=== PATIENT | male | born 1950 | race Caucasian/White ===

== ENCOUNTER 2017-04-20 09:12 | Emergency (ER) | payer OTHER ==
[2017-04-20] MEDS: IV NORMAL SALINE 1000ML BAG 1,000 ML IV (09:52)
[2017-04-20 09:58] LABS: ADD MAN DIFF? NO
[2017-04-20 10:01] LABS: BASO % 1 % (0-3); EOS % 0 % (0-3); HEMATOCRIT 46.8 % (39.0-53.0); HEMOGLOBIN 15.9 g/dL (13.0-17.5); LYMPH # 0.7 x10^3/uL (1.0-4.8); LYMPH % 11 % (24-48); MEAN CORPUSCULAR HEMOGLOBIN 32 pg (25-35); MEAN CORPUSCULAR HGB CONC 34 g/dL (31-37); MEAN CORPUSCULAR VOLUME 95 fL (79-100); MONO # 0.8 x10^3/uL (0.0-1.1); MONO % 12 % (0-9); NEUT # 4.9 x10^3uL (1.8-7.7); NEUT % 77 % (31-73); PLATELET COUNT 196 x10^3/uL (140-400); RED BLOOD COUNT 4.94 x10^6/uL (4.30-5.70); RED CELL DISTRIBUTION WIDTH 13.4 % (11.5-14.5); WHITE BLOOD COUNT 6.3 x10^3/uL (4.0-11.0)
[2017-04-20 10:14] LABS: ANION GAP 16 (6-14); BLOOD UREA NITROGEN 8 mg/dL (8-26); BUN/CREATININE RATIO 11 (6-20); CALCIUM 9.7 mg/dL (8.5-10.1); CARBON DIOXIDE 22 mmol/L (21-32); CHLORIDE 99 mmol/L (98-107); CREATININE 0.7 mg/dL (0.7-1.3); GFR 112.8; GLUCOSE 111 mg/dL (70-99); POTASSIUM 4.4 mmol/L (3.5-5.1); SODIUM 137 mmol/L (136-145)
[2017-04-20 10:19] LABS: ALBUMIN 4.2 g/dL (3.4-5.0); ALBUMIN/GLOBULIN RATIO 1.1 (1.0-1.7); ALK PHOS 69 U/L (46-116); ALT (SGPT) 33 U/L (16-63); AST (SGOT) 33 U/L (15-37); MAGNESIUM 2.2 mg/dL (1.8-2.4); TOTAL BILIRUBIN 0.7 mg/dL (0.2-1.0)
[2017-04-20 10:20] LABS: D-DIMER 0.33 ug/mlFEU (0.00-0.50); TROPONINI < 0.017 ng/mL (0.000-0.055)
[2017-04-20 10:59] LABS: INFLUENZA A PATIENT NEGATIVE (NEGATIVE); INFLUENZA B PATIENT NEGATIVE (NEGATIVE); OBC FLU VALID
[2017-04-20] MEDS: predniSONE 20 MG TABLET PO (11:25)
== END 2017-04-20 11:30 | disposition home or self-care (01) ==
LOC: ER 09:12
DX: J44.1 Chronic obstructive pulmonary disease with (acute) exacerbation (principal); F12.10 Cannabis abuse, uncomplicated; Z87.891 Personal history of nicotine dependence
CPT/HCPCS: 36415; 71045; 80053; 83735; 84484; 85025; 85379; 87804; 87804-59; 93005; 96360; 99285-25; J7030; J7512

== ENCOUNTER 2017-04-26 01:05 | Inpatient (IN) | payer OTHER ==
[2017-04-26 01:51] LABS: ADD MAN DIFF? NO
[2017-04-26 01:53] LABS: BASO # 0.1 x10^3/uL (0.0-0.2); BASO % 1 % (0-3); EOS % 0 % (0-3); HEMATOCRIT 45.8 % (39.0-53.0); HEMOGLOBIN 16.1 g/dL (13.0-17.5); LYMPH # 0.8 x10^3/uL (1.0-4.8); LYMPH % 15 % (24-48); MEAN CORPUSCULAR HEMOGLOBIN 33 pg (25-35); MEAN CORPUSCULAR HGB CONC 35 g/dL (31-37); MEAN CORPUSCULAR VOLUME 93 fL (79-100); MONO # 0.4 x10^3/uL (0.0-1.1); MONO % 8 % (0-9); NEUT % 76 % (31-73); PLATELET COUNT 160 x10^3/uL (140-400); RED BLOOD COUNT 4.95 x10^6/uL (4.30-5.70); RED CELL DISTRIBUTION WIDTH 13.1 % (11.5-14.5); WHITE BLOOD COUNT 5.3 x10^3/uL (4.0-11.0)
[2017-04-26] MEDS: IPRATRPIUM/ALBUTEROL 0.5/2.5MG 3 ML NEBU. NEB ×6 (01:56→20:18)
[2017-04-26] MEDS: IV NORMAL SALINE 1000ML BAG 1,000 ML IV (02:00)
[2017-04-26] MEDS: methylPREDNISolone SOD SUCC PF 125 MG/2 ML VIAL. IV (02:00)
[2017-04-26 02:13] LABS: ANION GAP 12 (6-14); BLOOD UREA NITROGEN 12 mg/dL (8-26); CALCIUM 9.6 mg/dL (8.5-10.1); CARBON DIOXIDE 27 mmol/L (21-32); CHLORIDE 96 mmol/L (98-107); CREATININE 0.7 mg/dL (0.7-1.3); GFR 112.8; GLUCOSE 131 mg/dL (70-99); POTASSIUM 3.6 mmol/L (3.5-5.1); SODIUM 135 mmol/L (136-145)
[2017-04-26 02:29] LABS: TROPONINI < 0.017 ng/mL (0.000-0.055)
[2017-04-26] MEDS: ONDANSETRON PF 4 MG/2 ML VIAL. IV (05:20)
[2017-04-26 06:42] LABS: TROPONINI < 0.017 ng/mL (0.000-0.055)
[2017-04-26] MEDS: AZITHROMYCIN 250 MG TABLET. PO (07:52)
[2017-04-26 10:27] LABS: TROPONINI < 0.017 ng/mL (0.000-0.055)
[2017-04-26] MEDS: PANTOPRAZOLE 40 MG TABLET.DR. PO (11:07)
[2017-04-26] MEDS: ENOXAPARIN 40 MG/0.4 ML SYRINGE. SQ (11:07)
[2017-04-26 11:45] LABS: INFLUENZA A PATIENT NEGATIVE (NEGATIVE); INFLUENZA B PATIENT NEGATIVE (NEGATIVE); OBC FLU VALID
[2017-04-26] MEDS: methylPREDNISolone SOD SUCC PF 40 MG/ML VIAL. IV ×2 (14:02→22:14)
[2017-04-26] MEDS: ZOLPIDEM 5 MG TABLET. PO (22:47)
[2017-04-27] MEDS: methylPREDNISolone SOD SUCC PF 40 MG/ML VIAL. IV (06:12)
[2017-04-27] MEDS: IPRATRPIUM/ALBUTEROL 0.5/2.5MG 3 ML NEBU. NEB ×4 (07:52→19:17)
[2017-04-27] MEDS: PANTOPRAZOLE 40 MG TABLET.DR. PO (08:54)
[2017-04-27] MEDS: predniSONE 10 MG TABLET PO (10:04)
[2017-04-27] MEDS: ENOXAPARIN 40 MG/0.4 ML SYRINGE. SQ (11:14)
[2017-04-27] MEDS: BUDESONIDE 0.5 MG/2 ML NEBU. NEB ×2 (11:37→19:17)
[2017-04-27] MEDS: ZOLPIDEM 5 MG TABLET. PO (22:47)
[2017-04-28] MEDS: PANTOPRAZOLE 40 MG TABLET.DR. PO (05:57)
[2017-04-28] MEDS: BUDESONIDE 0.5 MG/2 ML NEBU. NEB ×2 (08:26→20:45)
[2017-04-28] MEDS: IPRATRPIUM/ALBUTEROL 0.5/2.5MG 3 ML NEBU. NEB ×4 (08:26→20:45)
[2017-04-28] MEDS: PROMETH/CODEINE 6.25/10MG 5 ML SYRUP. PO (09:13)
[2017-04-28] MEDS: BENZONATATE 100 MG CAPSULE. PO (09:13)
[2017-04-28] MEDS: predniSONE 10 MG TABLET PO (09:14)
[2017-04-28] MEDS: ENOXAPARIN 40 MG/0.4 ML SYRINGE. SQ (11:23)
[2017-04-28 12:45] LABS: ANION GAP 12 (6-14); BLOOD UREA NITROGEN 13 mg/dL (8-26); CALCIUM 9.4 mg/dL (8.5-10.1); CARBON DIOXIDE 26 mmol/L (21-32); CHLORIDE 99 mmol/L (98-107); CREATININE 0.7 mg/dL (0.7-1.3); GFR 112.8; GLUCOSE 123 mg/dL (70-99); MAGNESIUM 2.3 mg/dL (1.8-2.4); POTASSIUM 3.2 mmol/L (3.5-5.1); SODIUM 137 mmol/L (136-145)
[2017-04-28 13:00] LABS: THYROID STIM HORMONE (TSH) 0.686 uIU/mL (0.358-3.74)
[2017-04-28] MEDS: POTASSIUM CHLORIDE 20 MEQ TABLET.ER. PO (14:01)
[2017-04-28] MEDS: ZOLPIDEM 5 MG TABLET. PO (22:53)
[2017-04-29 07:08] LABS: POTASSIUM 3.4 mmol/L (3.5-5.1)
[2017-04-29] MEDS: IPRATRPIUM/ALBUTEROL 0.5/2.5MG 3 ML NEBU. NEB ×2 (08:04→11:25)
[2017-04-29] MEDS: BUDESONIDE 0.5 MG/2 ML NEBU. NEB (08:04)
[2017-04-29] MEDS: PANTOPRAZOLE 40 MG TABLET.DR. PO (08:30)
[2017-04-29] MEDS: FLUCONAZOLE 100 MG TABLET. PO (08:30)
[2017-04-29] MEDS: predniSONE 10 MG TABLET PO (08:31)
== END 2017-04-29 15:04 | disposition home or self-care (01) | DRG 189 ==
LOC: ER 01:05 → 5 NORTH 03:18
DX: J96.21 Acute and chronic respiratory failure with hypoxia (principal); D75.1 Secondary polycythemia; I47.1 Supraventricular tachycardia; J44.1 Chronic obstructive pulmonary disease with (acute) exacerbation; F10.20 Alcohol dependence, uncomplicated; J06.9 Acute upper respiratory infection, unspecified; J98.01 Acute bronchospasm; K21.9 Gastro-esophageal reflux disease without esophagitis; E87.6 Hypokalemia; F12.90 Cannabis use, unspecified, uncomplicated; Z87.891 Personal history of nicotine dependence
CPT/HCPCS: 36415; 71045; 80048; 83735; 84132; 84443; 84484; 85025; 87804; 87804-59; 93005; 93306; 94618; 94640; 94760; 96361; 96374; 99285; 99285-25; J1650; J2405; J2920; J2930; J7030; J7512; J7620; J7626; Q0144

== ENCOUNTER 2017-05-06 16:48 | Inpatient (IN) | payer OTHER ==
[2017-05-06 17:27] LABS: ADD MAN DIFF? NO
[2017-05-06 17:32] LABS: BASO # 0.1 x10^3/uL (0.0-0.2); BASO % 1 % (0-3); EOS % 0 % (0-3); HEMATOCRIT 50.5 % (39.0-53.0); HEMOGLOBIN 17.1 g/dL (13.0-17.5); LYMPH # 1.5 x10^3/uL (1.0-4.8); LYMPH % 11 % (24-48); MEAN CORPUSCULAR HEMOGLOBIN 32 pg (25-35); MEAN CORPUSCULAR HGB CONC 34 g/dL (31-37); MEAN CORPUSCULAR VOLUME 93 fL (79-100); MONO # 0.8 x10^3/uL (0.0-1.1); MONO % 6 % (0-9); NEUT # 11.4 x10^3uL (1.8-7.7); NEUT % 82 % (31-73); PLATELET COUNT 416 x10^3/uL (140-400); RED BLOOD COUNT 5.42 x10^6/uL (4.30-5.70); RED CELL DISTRIBUTION WIDTH 13.5 % (11.5-14.5); WHITE BLOOD COUNT 13.9 x10^3/uL (4.0-11.0)
[2017-05-06 17:46] LABS: ANION GAP 12 (6-14); BLOOD UREA NITROGEN 14 mg/dL (8-26); CALCIUM 10.2 mg/dL (8.5-10.1); CARBON DIOXIDE 26 mmol/L (21-32); CHLORIDE 99 mmol/L (98-107); GFR 74.8; GLUCOSE 128 mg/dL (70-99); POTASSIUM 3.6 mmol/L (3.5-5.1); SODIUM 137 mmol/L (136-145)
[2017-05-06 17:52] LABS: ALBUMIN 3.9 g/dL (3.4-5.0); ALK PHOS 64 U/L (46-116); ALT (SGPT) 77 U/L (16-63); AST (SGOT) 30 U/L (15-37); DIRECT BILIRUBIN 0.2 mg/dL (0.0-0.2); LIPASE 214 U/L (73-393); TOTAL BILIRUBIN 1.3 mg/dL (0.2-1.0); TOTAL PROTEIN 8.2 g/dL (6.4-8.2)
[2017-05-06 17:54] LABS: LACTIC ACID 1.5 mmol/L (0.4-2.0)
[2017-05-06 17:55] LABS: TROPONINI < 0.017 ng/mL (0.000-0.055)
[2017-05-06 17:58] LABS: NT-PRO BNP 156 pg/mL (0-124)
[2017-05-06] MEDS: IV NORMAL SALINE 1000ML BAG 1,000 ML IV ×2 (18:01→19:55)
[2017-05-06] MEDS: ONDANSETRON PF 4 MG/2 ML VIAL. IV (18:01)
[2017-05-06] MEDS: fentaNYL PF VIAL 100 MCG/2 ML VIAL IV (18:02)
[2017-05-06] MEDS: IOHEXOL 300 MG/ML 100ML VIAL. IV (18:17)
[2017-05-06] MEDS ORDERED: ONDANSETRON PF 4 MG/2 ML VIAL. IV (19:00)
[2017-05-06] MEDS: LIDOCAINE 2% JELLY 6ML IN APPLICATOR. MM (19:00)
[2017-05-06 19:22] LABS: BILIRUBIN,URINE NEGATIVE (NEG); CLARITY,URINE CLEAR; COLOR,URINE YELLOW; GLUCOSE,URINE NEGATIVE (NEG); NITRITE,URINE NEGATIVE (NEG); PROTEIN,URINE 30 mg/dL (NEG-TRACE)
[2017-05-06] MEDS: MIDAZOLAM HCL/PF 2 MG/2 ML VIAL. IV (19:34)
[2017-05-06 19:38] LABS: AMORPHOUS SEDIMENT,UR PRESENT /HPF; BACTERIA,URINE 0 /HPF (0-FEW); RBC,URINE OCC /HPF (0-2)
[2017-05-06] MEDS: MORPHINE SULFATE 4 MG/ML DISP.SYRIN. IV (21:41)
[2017-05-07] MEDS: IV NORMAL SALINE 1000ML BAG 1,000 ML IV ×2 (05:44→14:57)
[2017-05-07] MEDS: MORPHINE SULFATE 4 MG/ML DISP.SYRIN. IV (05:47)
[2017-05-07] MEDS: ACLIDINIUM BROMIDE IH ×2 (08:20→21:02)
[2017-05-07] MEDS: NON FORMULARY ITEM (Budesonide/Formoterol Fumarate (Symbicort 80-4.5 Mcg Inhaler) 2 PUFF) IH ×2 (08:20→21:02)
[2017-05-07] MEDS: NON FORMULARY ITEM (Ipratropium/Albuterol Sulfate (Combivent Respimat Inhal) 2 INH) IH ×4 (08:20→21:01)
[2017-05-07 08:31] LABS: ADD MAN DIFF? NO
[2017-05-07 08:43] LABS: BASO % 0 % (0-3); EOS % 0 % (0-3); HEMATOCRIT 43.4 % (39.0-53.0); HEMOGLOBIN 14.6 g/dL (13.0-17.5); LYMPH # 1.3 x10^3/uL (1.0-4.8); LYMPH % 11 % (24-48); MEAN CORPUSCULAR HEMOGLOBIN 32 pg (25-35); MEAN CORPUSCULAR HGB CONC 34 g/dL (31-37); MEAN CORPUSCULAR VOLUME 96 fL (79-100); MONO # 0.7 x10^3/uL (0.0-1.1); MONO % 7 % (0-9); NEUT # 9.1 x10^3uL (1.8-7.7); NEUT % 82 % (31-73); PLATELET COUNT 325 x10^3/uL (140-400); RED BLOOD COUNT 4.55 x10^6/uL (4.30-5.70); RED CELL DISTRIBUTION WIDTH 13.8 % (11.5-14.5); WHITE BLOOD COUNT 11.2 x10^3/uL (4.0-11.0)
[2017-05-07 09:05] LABS: ANION GAP 7 (6-14); BLOOD UREA NITROGEN 14 mg/dL (8-26); CALCIUM 8.9 mg/dL (8.5-10.1); CARBON DIOXIDE 28 mmol/L (21-32); CHLORIDE 106 mmol/L (98-107); CREATININE 0.9 mg/dL (0.7-1.3); GFR 84.4; GLUCOSE 111 mg/dL (70-99); SODIUM 141 mmol/L (136-145)
[2017-05-07 09:17] LABS: POTASSIUM 4.8 mmol/L (3.5-5.1)
[2017-05-07] MEDS: ENOXAPARIN 40 MG/0.4 ML SYRINGE. SQ (11:52)
[2017-05-07] MEDS: IV DEXTROSE 5%-LACT RINGERS 1,000 ML IV ×2 (11:52→21:08)
[2017-05-07] MEDS: fentaNYL PF VIAL 100 MCG/2 ML VIAL IV ×2 (15:40→21:04)
[2017-05-08] MEDS: IV DEXTROSE 5%-LACT RINGERS 1,000 ML IV ×2 (06:00→08:31)
[2017-05-08] MEDS: NON FORMULARY ITEM (Ipratropium/Albuterol Sulfate (Combivent Respimat Inhal) 2 INH) IH ×4 (08:31→21:06)
[2017-05-08] MEDS: NON FORMULARY ITEM (Budesonide/Formoterol Fumarate (Symbicort 80-4.5 Mcg Inhaler) 2 PUFF) IH ×2 (08:31→21:06)
[2017-05-08] MEDS: ACLIDINIUM BROMIDE IH ×2 (08:32→21:06)
[2017-05-08] MEDS: fentaNYL PF VIAL 100 MCG/2 ML VIAL IV ×4 (08:36→21:05)
[2017-05-08] MEDS: ENOXAPARIN 40 MG/0.4 ML SYRINGE. SQ (08:37)
[2017-05-08] MEDS: AMINO AC 3%/ELECTROLYTE/GLYCER 1,000 ML IV ×2 (10:54→17:37)
[2017-05-08] MEDS: ONDANSETRON PF 4 MG/2 ML VIAL. IV ×2 (11:08→18:40)
[2017-05-09] MEDS: fentaNYL PF VIAL 100 MCG/2 ML VIAL IV ×8 (02:36→22:12)
[2017-05-09] MEDS: NON FORMULARY ITEM (Ipratropium/Albuterol Sulfate (Combivent Respimat Inhal) 2 INH) IH ×4 (08:10→20:02)
[2017-05-09] MEDS: ACLIDINIUM BROMIDE IH ×2 (08:10→20:01)
[2017-05-09] MEDS: NON FORMULARY ITEM (Budesonide/Formoterol Fumarate (Symbicort 80-4.5 Mcg Inhaler) 2 PUFF) IH ×2 (08:11→20:02)
[2017-05-09] MEDS: AMINO AC 3%/ELECTROLYTE/GLYCER 1,000 ML IV ×2 (08:13→14:46)
[2017-05-09] MEDS: ENOXAPARIN 40 MG/0.4 ML SYRINGE. SQ (14:47)
[2017-05-10] MEDS: AMINO AC 3%/ELECTROLYTE/GLYCER 1,000 ML IV ×3 (01:00→21:00)
[2017-05-10] MEDS: fentaNYL PF VIAL 100 MCG/2 ML VIAL IV ×4 (01:10→10:30)
[2017-05-10] MEDS: ACLIDINIUM BROMIDE IH ×2 (08:25→21:06)
[2017-05-10] MEDS: NON FORMULARY ITEM (Budesonide/Formoterol Fumarate (Symbicort 80-4.5 Mcg Inhaler) 2 PUFF) IH ×2 (08:25→21:06)
[2017-05-10] MEDS: NON FORMULARY ITEM (Ipratropium/Albuterol Sulfate (Combivent Respimat Inhal) 2 INH) IH ×4 (08:25→21:06)
[2017-05-10] MEDS: ENOXAPARIN 40 MG/0.4 ML SYRINGE. SQ (08:26)
[2017-05-10] MEDS ORDERED: IOHEXOL 300 MG/ML 100ML VIAL. (08:56)
[2017-05-10] MEDS: IOHEXOL 300 MG/ML 50 ML VIAL. PO (09:00)
[2017-05-10] MEDS ORDERED: CONTRAST GIVEN MC (09:00)
[2017-05-10] MEDS: ACETAMINOPHEN 650 MG/20.3 ML SOLUTION. PEG (15:20)
[2017-05-11] MEDS: AMINO AC 3%/ELECTROLYTE/GLYCER 1,000 ML IV ×2 (06:44→17:45)
[2017-05-11] MEDS: ACLIDINIUM BROMIDE IH ×2 (09:04→21:56)
[2017-05-11] MEDS: NON FORMULARY ITEM (Ipratropium/Albuterol Sulfate (Combivent Respimat Inhal) 2 INH) IH ×4 (09:05→21:56)
[2017-05-11] MEDS: NON FORMULARY ITEM (Budesonide/Formoterol Fumarate (Symbicort 80-4.5 Mcg Inhaler) 2 PUFF) IH ×2 (09:06→21:56)
[2017-05-11] MEDS: ENOXAPARIN 40 MG/0.4 ML SYRINGE. SQ (09:07)
[2017-05-11] MEDS: PHENOL ORAL SPRAY 177ML BOTTLE. PO ×2 (11:17→14:20)
[2017-05-11] MEDS: BENZOCAINE/MENTHOL LOZENGE. PO ×3 (11:17→17:45)
[2017-05-12] MEDS: AMINO AC 3%/ELECTROLYTE/GLYCER 1,000 ML IV (03:00)
[2017-05-12] MEDS: BENZOCAINE/MENTHOL LOZENGE. PO (04:48)
[2017-05-12] MEDS: ACLIDINIUM BROMIDE IH (08:17)
[2017-05-12] MEDS: NON FORMULARY ITEM (Budesonide/Formoterol Fumarate (Symbicort 80-4.5 Mcg Inhaler) 2 PUFF) IH (08:17)
[2017-05-12] MEDS: NON FORMULARY ITEM (Ipratropium/Albuterol Sulfate (Combivent Respimat Inhal) 2 INH) IH (08:17)
[2017-05-12] MEDS: ENOXAPARIN 40 MG/0.4 ML SYRINGE. SQ (08:19)
== END 2017-05-12 14:22 | disposition home or self-care (01) | DRG 389 ==
LOC: ER 16:48 → 4 NORTH 19:14
PROC: 0D9670Z Drainage of Stomach with Drainage Device, Via Natural or Artificial Opening (ICD-10-PCS; principal; 2017-05-06)
DX: K56.51 Intestinal adhesions [bands], with partial obstruction (principal); E44.1 Mild protein-calorie malnutrition; J44.9 Chronic obstructive pulmonary disease, unspecified; D72.829 Elevated white blood cell count, unspecified; F10.10 Alcohol abuse, uncomplicated; K21.9 Gastro-esophageal reflux disease without esophagitis; F12.90 Cannabis use, unspecified, uncomplicated; Z68.21 Body mass index [BMI] 21.0-21.9, adult; Z87.891 Personal history of nicotine dependence
CPT/HCPCS: 36415; 74022; 74177; 74250; 80048; 80076; 81001; 83605; 83690; 83880; 84484; 85025; 93005; 96361; 96374; 96375; 99285; 99285-25; J1650; J2060; J2250; J2270; J2405; J3010; J7030; Q9967

== ENCOUNTER → 2017-11-13 | Outpatient (CLI) | payer OTHER ==
[2017-05-12 11:00] VITALS: BP 114/61
[~2017-11-13] MED LIST: ACLI400A2 IH; BUDE10.22 IH; IPRA4AER IH; PRED20TA PO
--- NOTE | 2017-11-13 13:01 | RAD ---
CT of the chest without contrast 11/13/2017 INDICATION: Low dose lung cancer screening exam. INDICATION: 67-year-old male with extensive smoking history. History of COPD, hypertension, and renal disease. COMPARISON STUDY: None available. TECHNIQUE: Multidetector CT imaging of the chest was performed without the administration of IV contrast. FINDINGS: Heart size is normal. No pericardial effusion is identified. Coronary calcification noted. No pathologically enlarged mediastinal or hilar nodes are appreciated. Moderate diffuse emphysematous changes are seen. However, prominent bullous apical changes are seen bilaterally. In the right upper lung there is an area of linear consolidation and bronchiectasis consistent with scarring. In the right lung apex there is bullous change and linear areas of scarring. There is also however a spiculated soft tissue density nodule measuring up to 1.7 cm in axial diameter (axial image 62). There is a 2 mm nodule in the right upper lobe anterior medially immediately posterior to the superior vena cava (axial image 94) there is a 2 mm nodule in the right lower lobe (axial image 287). There is a 8 mm hypodensity in the left lobe of liver with attenuation characteristics consistent with a small hepatic cyst. Diffuse degenerative changes of the thoracic spine are seen. There is a smoothly marginated lytic lesion in the posterior vertebral body at T7. IMPRESSION: 1. LUNG RADS CATEGORY 4B : 17 mm spiculated nodule in the apical right upper lobe, with adjacent scarring and bullous change.Recommend PET/CT and possibly subsequent biopsy for further evaluation based on clinical findings. 2. 2 mm nodule, right upper lobe. 2 mm nodule right lower lobe. CT surveillance recommended. 3. Emphysematous changes as described 4. Smoothly marginated 8 mm lytic foci in the posterior vertebral body T7. A benign etiology is favored however given other findings attention metastatic disease cannot be completely excluded. Attention on PET/CT, and/or subsequent follow-up imaging studies is recommended CT DOSING PQRS STATEMENT: One or more of the following individualized dose reduction techniques were utilized for this examination: 1. Automated exposure control 2. Adjustment of the mA and/or kV according to patient size 3. Use of iterative reconstruction technique Electronically signed by: Xavier Tidwell MD (11/13/2017 12:57 PM) [id number]
== END | disposition home or self-care (01) ==
LOC: CT 11:48
PROVIDERS: ATTEND Family Medicine
DX: Z12.2 Encounter for screening for malignant neoplasm of respiratory organs (principal); J43.9 Emphysema, unspecified; I10 Essential (primary) hypertension; J98.4 Other disorders of lung; R91.8 Other nonspecific abnormal finding of lung field; F12.10 Cannabis abuse, uncomplicated; Z87.891 Personal history of nicotine dependence; Z72.89 Other problems related to lifestyle
CPT/HCPCS: G0297

== ENCOUNTER → 2017-11-26 | Outpatient (CLI) | payer OTHER ==
[2017-05-12 11:00] VITALS: BP 114/61
--- NOTE | 2017-11-26 12:00 | RAD ---
FDG tumor localization scan, PET/CT, 11/26/2017: History: Lung mass Following IV injection of 15.1 mCi of 18 F-FDG, imaging was performed from the skull base to the proximal thighs. The noncontrast CT component was performed for attenuation correction and anatomic localization purposes rather than for primary diagnosis. The patient's blood glucose level the time of injection was 96 M.D./DL. The patient's known 1.7 cm spiculated right apical mass is hypermetabolic. It demonstrates a maximum SUV of 4.8. There are moderate emphysematous changes in the lungs with scattered pleural-parenchymal scars. There is a streaky parenchymal opacity in the left apex which demonstrates low level FDG uptake with a maximum SUV of 2.1. The pulmonary FDG uptake is otherwise unremarkable. No abnormal mediastinal or hilar FDG uptake is seen. Normal GI tract and urinary tract activity is evident in the abdomen and pelvis. No hypermetabolic abdominal process is seen. There is a small hypermetabolic focus at the left groin, demonstrating a maximum SUV of 6.0. It is somewhat elongated in configuration and appears to related to the anterior pelvic wall musculature at this level. No obvious enlarged lymph node is seen. Incidental CT findings include the presence of partial opacification of the right maxillary sinus. There is moderate calcific plaquing of the aorta. Minimal coronary artery calcifications are noted. There are surgical clips at the right groin level. There is diffuse bladder wall thickening. This may be due to chronic bladder outlet obstruction or infection. Chronic diastases of the symphysis pubis is evident. An intramuscular lipoma is noted in the upper right thigh anteriorly. IMPRESSION: 1. Hypermetabolic right apical mass suggesting a primary lung malignancy. Infection is a less likely possibility. 2. Low-level FDG uptake in a streaky left apical structure, most likely due to scarring. Follow-up imaging is suggested to establish stability. 3. Small hypermetabolic focus at the left groin may be musculoskeletal. 4. No definite FDG-PET evidence of distant metastatic disease.
== END | disposition home or self-care (01) ==
LOC: PETSC 09:28
PROVIDERS: ATTEND Internal Medicine Pulmonary Disease
DX: R91.8 Other nonspecific abnormal finding of lung field (principal); I25.10 Atherosclerotic heart disease of native coronary artery without angina pectoris; S33.4XXD Traumatic rupture of symphysis pubis, subsequent encounter; D17.23 Benign lipomatous neoplasm of skin and subcutaneous tissue of right leg; X58.XXXD Exposure to other specified factors, subsequent encounter
CPT/HCPCS: 78815; A9552

== ENCOUNTER 2017-11-30 06:48 | Outpatient (CLI) | payer OTHER ==
[~2017-11-30] VITALS: Ht 177.8 cm; Wt 65.8 kg
[2017-11-30] VITALS (15 sets, daily range): BP systolic 90–140; BP diastolic 57–88
[2017-11-30 07:47] LABS: BASO % 1 % (0-3); EOS % 1 % (0-3); HEMATOCRIT 48.3 % (39.0-53.0); HEMOGLOBIN 16.9 g/dL (13.0-17.5); LYMPH # 1.6 x10^3/uL (1.0-4.8); LYMPH % 33 % (24-48); MEAN CORPUSCULAR HEMOGLOBIN 33 pg (25-35); MEAN CORPUSCULAR HGB CONC 35 g/dL (31-37); MEAN CORPUSCULAR VOLUME 93 fL (79-100); MONO # 0.5 x10^3/uL (0.0-1.1); MONO % 10 % (0-9); NEUT # 2.6 x10^3uL (1.8-7.7); NEUT % 56 % (31-73); PLATELET COUNT 185 x10^3/uL (140-400); RED BLOOD COUNT 5.19 x10^6/uL (4.30-5.70); WHITE BLOOD COUNT 4.8 x10^3/uL (4.0-11.0)
[2017-11-30 07:58] LABS: PROTHROMBIN TIME PATIENT 12.3 SEC (11.7-14.0)
[2017-11-30] MEDS ORDERED: MIDAZOLAM HCL/PF 2 MG/2 ML VIAL. ONE (08:05)
[2017-11-30] MEDS ORDERED: fentaNYL PF VIAL 100 MCG/2 ML VIAL ONE (08:06)
[2017-11-30] MEDS ORDERED: LIDOCAINE WITH 8.4% SOD BICARB 3 ML DISP.SYRIN. ONE (08:07)
[2017-11-30] MEDS ORDERED: fentaNYL PF VIAL 100 MCG/2 ML VIAL IV ONE (09:30)
[2017-11-30] MEDS ORDERED: MIDAZOLAM HCL/PF 2 MG/2 ML VIAL. IV ONE (09:30)
[2017-11-30] MEDS ORDERED: LIDOCAINE WITH 8.4% SOD BICARB 3 ML DISP.SYRIN. IJ ONE (09:30)
--- NOTE | 2017-11-30 09:30 | PDOC1 ---
History and Physical Date of Procedure Date of Admission History of Present Illness Reason for Visit Active lung nodule on PET Past Medical History Past Medical History see nursing pre-op assessment Current Medications Current Medications Current Medications Midazolam HCl (Versed) 2 mg STK-MED ONCE .ROUTE ; Start 11/30/17 at 08:05; Stop 11/30/17 at 08:07; Status DC Fentanyl Citrate (Fentanyl 2ml Vial) 100 mcg STK-MED ONCE .ROUTE ; Start at 08:06; Stop 11/30/17 at 08:07; Status DC Lidocaine/Sodium Bicarbonate (Buffered Lidocaine 1%) 3 ml STK-MED ONCE .ROUTE ; Start 11/30/17 at 08:07; Stop 11/30/17 at 08:08; Status DC Lidocaine/Sodium Bicarbonate (Buffered Lidocaine 1%) 3 ml 1X ONCE IJ Last administered on 11/30/17at 09:21; Start 11/30/17 at 09:30; Stop 11/30/17 at 09 :31 Midazolam HCl (Versed) 2 mg 1X ONCE IV Last administered on 11/30/17at 09:22; Start 11/30/17 at 09:30; Stop 11/30/17 at 09:31 Fentanyl Citrate (Fentanyl 2ml Vial) 100 mcg 1X ONCE IV Last administered on 11/30/17at 09:22; Start 11/30/17 at 09:30; Stop 11/30/17 at 09:31 Active Scripts Active Reported Combivent Respimat Inhal (Ipratropium/Albuterol Sulfate) 4 Gm Aer.w.adap 2 Inh IH QID Tudorza Pressair (Aclidinium [place]) 400 Mcg Aer.pow.ba 400 Mcg IH BID Symbicort 80-4.5 Mcg Inhaler (Budesonide/Formoterol Fumarate) 10.2 Gm Hfa.aer.ad 2 Puff IH BID Allergies Allergies: Coded Allergies: No Known Drug Allergies (Unverified , 04/20/17) Physical Exam Vital Signs Vital Signs Date Time Temp Pulse Resp B/P (MAP) Pulse Ox O2 Delivery O2 Flow Rate FiO2 11/30/17 09:23 92 12 95 Nasal Cannula 2.0 11/30/17 07:35 97.9 132/70 (90) 97.9 Other see nursing pre-op assessment Assessment Assessment Active lung nodule on PET Plan Plan CT right apical lung biopsy SHAKIR MARTIN MD Nov 30, 2017 09:30
--- NOTE | 2017-11-30 09:31 | PDOC ---
BRIEF OPERATIVE NOTE Pre-Op Diagnosis right apical lung nodule Post-Op Diagnosis same Procedure Performed CT Lung biopsy Surgeon Kim Anesthesia Type: Conscious Sedation Specimens Obtained 5 x 20g cores Findings right lung biopsy Complications No immediate SHAKIR MARTIN MD Nov 30, 2017 09:31
--- NOTE | 2017-11-30 09:31 | PDOC ---
MODERATE SEDATION ASSESSMENT RISKS/ALTERNATIVES Risks/Alternatives Risks and alternatives of this type of sedation and procedure discussed with: RISK/ALTERNATIVES: Patient H & P ON CHART H & P H & P on chart and reviewed for co-morbid conditions and appropriate labs. H&P ON CHART: Yes STATUS PREG STATUS ASSESSED: Yes MEDS/ALLERGIES REVIEWED Meds/Allergies Reviewed Medications and Allergies including time and route of recently administered narcotics and sedatives. MEDS/ALLERGIES REVIEWED: Yes ASA RATING ASA RATING: III AIRWAY ASSESSMENT Airway Assessment Airway patency, oral function limitations, presence of caps, crowns, dentures, partials, and ability to extend neck assessed. AIRWAY ASSESSMENT: Yes MALLAMPATI SCORE MALLAMPATI SCORE: II PRE-SEDATION ASSESSMENT PRE-SEDATION ASSESSMENT: Yes SHAKIR MARTIN MD Nov 30, 2017 09:31
--- NOTE | 2017-11-30 10:19 | RAD ---
Procedure: CT-guided right upper lobe lung biopsy Clinical Indication: 67-year-old male with suspicious spiculated right upper lobe lung nodule, metabolically active on PET scan Sedation: Conscious sedation was administered with a total intraprocedural bkte-mg-gbvc time of 23 minutes. The patient was monitored by a qualified independent observer throughout the time of sedation. Please refer to the medical record for exact doses of medications utilized to achieve moderate sedation. Antibiotics: None Sterility: The procedure was performed in its entirety using appropriate elements of sterile technique. Consent: The procedure was explained in its entirety to the patient or the patients designated medical claims representative by a member of the treatment team, including a discussion of the risks, benefits and commonly accepted alternatives to the procedure, as well as the expected consequences of no therapy whatsoever. Discussion of the risks included, but was not limited to, those that are most frequent and those that are rare but possibly severe or life-threatening, as well as the possibility of unforeseen complications. Technique and Findings: Following informed consent, the patient was prepped and draped in usual sterile fashion. Pulmonary CT scan of the area of interest was performed. 1% lidocaine was used to achieve local anesthesia over the area of interest. A small dermatotomy was made. Under periodic CT surveillance, a 19-gauge needle guide was advanced towards the targeted lesion and 5 x 20-gauge core biopsy passes were performed, with all fragments preserved in formalin. A blood patch was applied as the needle guide was removed and hemostasis was achieved with manual compression. Complications: No immediate Impression: 1. CT-guided right apical lung biopsy as described PQRS Compliance Statement: One or more of the following individualized dose reduction techniques were utilized for this examination: 1. Automated exposure control 2. Adjustment of the mA and/or kV according to patient size 3. Use of iterative reconstruction technique
--- NOTE | 2017-11-30 11:55 | RAD ---
CHEST AP ONLY Clinical Indication: POST RIGHT LUNG BIOPSY Comparison: AP chest April 26, 2017.. Findings: Atherosclerotic thoracic aorta. Cardiac size is normal. Right apical opacity may be postbiopsy changes. There is no pneumothorax. No pleural effusion is appreciated. No acute bone abnormality. IMPRESSION: No pneumothorax. Electronically signed by: Jose Osuna MD (11/30/2017 11:52 AM) [id number]
--- NOTE | 2017-12-01 14:08 | PATHOLOGY ---
[facility] Accession Number: [id number] . 01 Material submitted: . RIGHT LUNG MASS . 01 Clinical history: . Right lung mass . 02 Diagnosis: Lung tissue, right lung mass, CT-guided needle biopsies: - Adenocarcinoma, moderately differentiated. See comment. . (JPM/at;11/30/2017) QTA/12/01/2017 . 02 Comment: Sections of the right lung mass CT-guided needle biopsy reveal a malignant epithelial neoplasm. Most of the biopsy consists of a pulmonary scar with a few small portions of alveolated lung noted. There are malignant glands which irregularly infiltrate the pulmonary scar. The malignant cells have abundant amounts of eosinophilic cytoplasm, and possess enlarged, moderately pleomorphic hyperchromatic nuclei containing prominent nucleoli. The area of pulmonary scarring shows focal anthracotic pigment deposition, chronic inflammation, and focal dystrophic calcification. The morphologic findings are supportive of the diagnosis of a moderately differentiated pulmonary acinar adenocarcinoma. The case is also examined by Dr. Prieto, who concurs with the diagnosis. . (JPM/at;11/30/2017) . 02 Electronically signed: . Sadiq Hall MD, Pathologist NPI- [id number] . 01 Gross description: . The specimen is received in formalin, labeled "Dl Cruz, right lung mass biopsy," and additionally labeled on the requisition in the procedure field as, "RUL lung biopsy". Received are multiple friable fragments of pale shaver soft tissue measuring 0.5 x 0.5 x 0.1 cm in aggregate dimensions. The specimen is filtered and entirely submitted in cassette A1. (CAA; 11/30/2017) QAC/QAC . 02 Pathologist provided ICD-10: C34.91 . 02 CPT . 371070 Specimen Comment: A courtesy copy of this report has been sent to Specimen Comment: [phone], , . Specimen Comment: Report sent to ,DR HARTMANN / DR POWELL Specimen Comment: A duplicate report has been generated due to demographic updates. Performed at: 01 [facility] [address], [place] [id number] MD Shai Rubio MD Phone: [phone] Performed at: 02 [facility] [address] [place], [place] [id number] MD Sadiq Hall MD Phone: [phone]
== END 2017-11-30 12:22 | disposition home or self-care (01) ==
LOC: INTRAD 06:48
PROVIDERS: ATTEND Internal Medicine Pulmonary Disease
DX: C34.91 Malignant neoplasm of unspecified part of right bronchus or lung (principal); Z79.899 Other long term (current) drug therapy; Z79.01 Long term (current) use of anticoagulants
CPT/HCPCS: 32405; 36415; 71045; 77012; 85025; 85610; 85730; 99152; 99153; J2250; J3010; 88305

== ENCOUNTER → 2017-12-22 | Outpatient (CLI) | payer OTHER ==
[2017-11-30 11:45] VITALS: BP 100/75
--- NOTE | 2017-12-22 16:57 | RAD ---
Examination: LUNG PERFUSION W/ DIFF COUNTS History: rt lung ca. pt reports, RUL TUMOR. HX OF COPD. Comparison/Correlation: 11/13/2017 CT low dose lung cancer screening exam Findings: 22 mCi xenon-133 gas was administered. Prolonged washout radiotracer consistent with COPD identified. 6.6 mCi technetium 99m MAA was intravenously administered for purposes of perfusion imaging in 8 projections. There is no suspicious matched defect or mismatch defect. Differential ventilation is: RIGHT lung 48.5 percent Left lung 51.5 percent Differential perfusion is: Right lung 62.4 percent Left lung 37.6 percent Impression: Nearly symmetric ventilation seen. Mildly to moderately less left lung perfusion as compared to the right lung. Low probability for pulmonary embolism. COPD Electronically signed by: Mark Valdovinos MD (12/22/2017 4:53 PM) [facility]
== END | disposition home or self-care (01) ==
LOC: NM 08:32
PROVIDERS: ATTEND Internal Medicine Pulmonary Disease
DX: J44.9 Chronic obstructive pulmonary disease, unspecified (principal); Z85.118 Personal history of other malignant neoplasm of bronchus and lung
CPT/HCPCS: 78597; 96374; A9540; A9558

== ENCOUNTER → 2018-03-19 | Outpatient (CLI) | payer OTHER ==
[2017-11-30 11:45] VITALS: BP 100/75
[~2018-03-19] MED LIST changes: +CANN100S PO
--- NOTE | 2018-03-19 09:07 | RAD ---
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 One or more of the following individualized dose reduction techniques were utilized for this examination: 1. Automated exposure control 2. Adjustment of the mA and/or kV according to patient size 3. Use of iterative reconstruction technique. Comparison: 11/13/2017 Findings: There is somewhat smaller spiculated right upper lobe mass best seen axial image 11 series 2 about 1.9 cm transverse by 1.3 cm AP by 1.1 cm CC versus previously about 2.2 cm transverse by 1.9 cm AP by 1.3 cm cc. There is no new pericardial effusion, new mass or infiltrate, pneumothorax. There is again fairly severe emphysema with upper zone predominance. There is biapical reticular density likely fibrotic change overall similar in appearance. Tiny right upper lobe nodule seen previously of the right upper lobe axial image 17 less than 0.2 cm in size is somewhat less apparent. Tiny 0.2 cm right lobe nodule axial image 56 series 2 is stable. No new significantly enlarged nodes are identified of the chest. There is scattered atherosclerotic calcification of the thoracic aorta. There is coronary calcification. Small hypodense lesion of the lateral left lobe of the liver about 0.9 cm is similar, possibly a cyst. There is multilevel thoracic spondylosis. Small lytic focus of the posterior T7 vertebral body is unchanged. IMPRESSION: 1. Previously seen spiculated right upper lobe mass is somewhat smaller, no new mass or pleural fluid. There is emphysema with upper zone predominance. A couple of tiny previously seen right upper lobe and right lower lobe pulmonary nodules are stable. There is no new chest lymphadenopathy. 2. Small lytic focus of the posterior T7 vertebral body is stable, possibly hemangioma. 3. There is coronary calcification. Electronically signed by: Black Castillo MD (03/19/2018 9:03 AM) [facility]
== END | disposition home or self-care (01) ==
LOC: CT 07:32
PROVIDERS: ATTEND Radiology Radiation Oncology
DX: C34.11 Malignant neoplasm of upper lobe, right bronchus or lung (principal)
CPT/HCPCS: 71250

== ENCOUNTER → 2018-09-16 | Outpatient (CLI) | payer OTHER ==
[2017-11-30 11:45] VITALS: BP 100/75
[~2018-09-16] MED LIST changes: -ACLI400A2 IH; +ACLI400A3 IH
--- NOTE | 2018-09-16 09:24 | RAD ---
CT CHEST WO CONTRAST History: Lung cancer. Technique: Noncontrast CT of the chest was performed. Coronal and sagittal reconstructions were performed. Exposure: One or more of the following individualized dose reduction techniques were utilized for this examination: 1. Automated exposure control 2. Adjustment of the mA and/or kV according to patient size 3. Use of iterative reconstruction technique. Comparison: March 19, 2018 CT chest. PET/CT November 26, 2017. Findings: Chest: No pathologic axillary, mediastinal or hilar adenopathy. Normal heart size. No pleural effusion. No consolidation. Coronary artery calcification. Decreased size of spiculated right apical pulmonary nodule with decreased solid component measures 1.3 x 1.2 cm (compared to 1.7 x 1.3 cm is previously). 2 mm right upper lobe pleural-based nodule (series 2 image #16), unchanged. No new pulmonary nodules. Biapical fibronodular scarring, unchanged. Moderate pulmonary emphysema. Upper abdomen: Unchanged left anterior hepatic hypodensity. Bones: Unchanged lytic lesion within the posterior aspect mid thoracic vertebral body, favor hemangioma. DISH related changes of the thoracic spine. Impression: 1. Decreased right apical spiculated nodule compatible with known malignancy. No new pulmonary nodules. 2. Moderate pulmonary emphysema. 3. Small left anterior hepatic lobe hypodensity, unchanged. Electronically signed by: Geoff Shaikh DO (09/16/2018 9:21 AM) [facility]
== END | disposition home or self-care (01) ==
LOC: CT 07:33
PROVIDERS: ATTEND Radiology Radiation Oncology
DX: C34.11 Malignant neoplasm of upper lobe, right bronchus or lung (principal); J43.9 Emphysema, unspecified; J98.4 Other disorders of lung; R91.1 Solitary pulmonary nodule; I25.10 Atherosclerotic heart disease of native coronary artery without angina pectoris; M89.9 Disorder of bone, unspecified; M48.14 Ankylosing hyperostosis [Forestier], thoracic region
CPT/HCPCS: 71250

== ENCOUNTER → 2019-03-25 | Outpatient (CLI) | payer MEDICARE ==
[2017-11-30 11:45] VITALS: BP 100/75
--- NOTE | 2019-03-25 09:37 | CARD ---
MR#: [id number] Date of Study: 03/25/2019 Ordering Physician: DIANE TAO, Referring Physician: DIANE TAO, Tech: Mikayla Jenkins LEANN APPROVED REPORT EXAM: Two-dimensional and M-mode echocardiogram with Doppler and color Doppler. Other Information Quality : Adequate/low parastenal window.HR: 108bpm Rhythm : Tachy/Sinus/IrregularTechnically limited study due to COPD, thin body habitus. INDICATION Tachycardia. Hx: COPD 2D DIMENSIONS RVDd3.3 (2.9-3.5cm)IVSd0.8 (0.7-1.1cm) Aortic Root(2D)2.8 (2.0-3.7cm)LVDd5.2 (3.9-5.9cm) LVOT Diameter2.0 (1.8-2.4cm)PWd0.8 (0.7-1.1cm) LVDs3.4 (2.5-4.0cm)FS (%) 33.3 % SV78.5 mlLVEF(%)61.6 (>50%) Aortic Valve AoV Peak [place].127.9cm/Elisa Peak GR.6.5mmHg LVOT Peak [place].66.3cm/sAVA (VMAX)1.66cm2 Mitral Valve MV E Vfrnaijq49.4cm/sMV DECEL AZFM875id MV A Azphoqfe87.3cm/sE/A Ratio0.9 MV A [id number] Pulmonary Valve PV Peak Bruycnzk37.3cm/s Tricuspid Valve TR P. Hkvgakhq440uk/sRAP EJLZAPPK2vnZp TR Peak Gr.63gaOwUGOX73nmHe LEFT VENTRICLE The left ventricle is normal size. There is normal left ventricular wall thickness. The left ventricu lar systolic function is low normal. The Ejection Fraction is 50% Difficult to estimate wall motion d ue to frequent PAC's but grossly normal wall motion. Transmitral Doppler flow pattern is Grade I-abno rmal relaxation pattern. RIGHT VENTRICLE The right ventricle is normal size. The right ventricular systolic function is normal. ATRIA The left atrium size is normal. The right atrium size is normal. The interatrial septum is intact wit h no evidence for an atrial septal defect or patent foramen ovale as noted on 2-D or Doppler imaging. AORTIC VALVE Not well visualized. Doppler and Color Flow revealed no significant aortic regurgitation. There is no significant aortic valvular stenosis. MITRAL VALVE The mitral valve is normal in structure and function. There is no mitral valve stenosis. Doppler and Color-flow revealed trace mitral regurgitation. TRICUSPID VALVE The tricuspid valve is normal in structure and function. Doppler and Color Flow revealed trace tricus pid regurgitation. The PA pressure was estimated at 20-25 mmHg. There is no tricuspid valve stenosis. PULMONIC VALVE The pulmonic valve is not well visualized. GREAT VESSELS The aortic root is normal in size. The ascending aorta is not well visualized. The IVC is normal in s ize and collapses >50% with inspiration. PERICARDIAL EFFUSION There is no evidence of significant pericardial effusion. Critical Notification Critical Value: No <Conclusion> The left ventricular systolic function is low normal. The Ejection Fraction is 50% Difficult to estimate wall motion due to frequent PAC's but grossly normal wall motion. Technically difficult study Signed by : Chandra Lindo, Electronically Approved : 03/25/2019 09:37:16
== END | disposition home or self-care (01) ==
LOC: ECHO 07:44
PROVIDERS: ATTEND Internal Medicine Cardiovascular Disease
DX: R00.0 Tachycardia, unspecified (principal); J44.9 Chronic obstructive pulmonary disease, unspecified
CPT/HCPCS: 93306

== ENCOUNTER → 2019-06-22 | Outpatient (CLI) | payer MEDICARE ==
[2017-11-30 11:45] VITALS: BP 100/75
[~2019-06-22] MED LIST changes: +ALBU2.5V8 IH; +FLUT1BLS3 IH
--- NOTE | 2019-06-22 09:09 | RAD ---
CT CHEST WO CONTRAST INDICATION: Lung adenocarcinoma. COMPARISON STUDY: 09/16/2018. TECHNIQUE: Unenhanced axial images were obtained through the lungs and upper abdomen. Coronal and sagittal multiplanar reconstructions were also obtained. PQRS compliance statement: One or more of the following individualized dose reduction techniques were utilized for this examination: 1. Automated exposure control 2. Adjustment of the mA and/or kV according to patient size 3. Use of iterative reconstruction technique FINDINGS: Lungs and Airways: Unchanged right apical spiculated nodule with slightly increased adjacent subpleural opacity, increased volume loss, increased architectural distortion. Stable left apical linear opacities. Middle lobe nodule measuring 0.3 cm is seen slightly better but is unchanged in size, probably related to slice selection (series 3 image 43) Paraseptal and centrilobular emphysema. Normal central airways. Pleura: The pleural spaces are normal. Heart and Mediastinum: Subcentimeter left thyroid nodule, not requiring further evaluation based on size criteria. No axillary or supraclavicular lymphadenopathy. No mediastinal, hilar or retrocrural lymphadenopathy. Normal cardiac size. No pericardial effusion. Coronary artery atherosclerotic disease. Atherosclerosis of the thoracic aorta. Abdomen: The visualized abdominal organs demonstrate no abnormality. Bones and Soft Tissues: Multilevel degenerative changes of the spine. Continued stability of T8 lytic focus, possibly a hemangioma. IMPRESSION: Stable right apical spiculated nodule with slightly increased adjacent subpleural opacities, architectural distortion, and volume loss which probably represent progressive postradiation change. Continued surveillance is recommended, as per clinical protocol. No new pulmonary mass or lymphadenopathy. Electronically signed by: Black Mora MD (06/22/2019 9:07 AM) [id number]
== END | disposition home or self-care (01) ==
LOC: CT 07:39
PROVIDERS: ATTEND Radiology Radiation Oncology
DX: C34.11 Malignant neoplasm of upper lobe, right bronchus or lung (principal); J43.2 Centrilobular emphysema; E04.1 Nontoxic single thyroid nodule; I70.0 Atherosclerosis of aorta; R91.1 Solitary pulmonary nodule
CPT/HCPCS: 71250